=== PATIENT | female | born 1965 | race Caucasian/White ===

== ENCOUNTER 2017-01-25 12:28 | Emergency (ER) | payer MEDICAID ==
[2017-01-25 12:57] VITALS: BP 134/75
--- NOTE | 2017-01-25 14:18 | EDM.PDOC ---
ED HPI GENERAL MEDICAL PROBLEM - General Chief Complaint: ENT Problem Stated Complaint: EAR PAIN Time Seen by Provider: 01/25/17 14:08 Source of Information: Reports: Patient History Limitations: Reports: No Limitations - History of Present Illness INITIAL COMMENTS - FREE TEXT/NARRATIVE: 51 yo presents with left jaw and ear pain. starting last night. She states it started after she brushed her teeth and has worsened since. Unable to sleep last evening because of the pain. has established care at dentist. left sided headache. Denies fever, chills, sore throat, URI or general ill feeling. Left Ear Pain Score (Numeric/FACES): 10 - Related Data Allergies Allergy/AdvReac Type Severity Reaction Status Date / Time codeine Allergy Severe Rash Verified 01/25/17 13:58 Home Meds: Home Meds Cyclobenzaprine [Flexeril] 1 tab PO DAILY 03/02/16 [History] Ketoconazole [Ketoconazole] 1 applic TOP BID 03/02/16 [History] Terbinafine HCl [Terbinafine] 1 applic TOP BID 03/02/16 [History] traMADol [Ultram] 1 tab PO QID 03/02/16 [History] Hydrocort/Neomycin/Polymyxin B [Cortisporin Otic Susp] 03/16/16 [History] Doxepin HCl [Doxepin] 10 mg PO BEDTIME PRN 01/25/17 [History] Past Medical History - Past Health History Medical/Surgical History: Denies Medical/Surgical History Musculoskeletal History: Reports: Back Pain, Chronic, Other (See Below) Other Musculoskeletal History: chronic hip pain Social & Family History - Tobacco Use Smoking Status *Q: Current Every Day Smoker Years of Tobacco use: 32 Packs/Tins Daily: 0.5 Used Tobacco, but Quit: No Second Hand Smoke Exposure: No - Caffeine Use Caffeine Use: Reports: Coffee, Soda, Tea - Alcohol Use Days Per Week of Alcohol Use: 0 - Recreational Drug Use Recreational Drug Use: No ED ROS ENT - Review of Systems Review Of Systems: See Below Constitutional: Denies: Fever, Chills, Fatigue HEENT: Reports: Dental Pain, Ear Pain Respiratory: Denies: Shortness of Breath, Wheezing Cardiovascular: Denies: Chest Pain GI/Abdominal: Denies: Abdominal Pain ED EXAM, ENT - Physical Exam Exam: See Below Exam Limited By: No Limitations General Appearance: Alert, WD/WN, No Apparent Distress Ears: Normal External Exam, Normal Canal, Hearing Grossly Normal, Normal TMs Nose: Normal Inspection, Normal Mucousa Mouth/Throat: Dental Abcess (left lower back two teeth, moderate erythema, moderate edema, dental caries, tooth appears broken), Dental Pain, Dental Tenderness Head: Atraumatic, Normocephalic, Other (left mandible tenderness) Neck: Supple, Lymphadenopathy (L) Respiratory/Chest: No Respiratory Distress, Lungs Clear, Normal Breath Sounds. No: Crackles, Rhonchi, Wheezing Cardiovascular: Regular Rate, Rhythm GI/Abdominal: Soft, Non-Tender Neurological: Alert, Oriented Psychiatric: Normal Affect, Normal Mood Skin: Warm, Dry, Intact Course - Vital Signs Last Recorded V/S: Last Vital Signs Temp 36.6 C 01/25/17 13:57 Pulse 102 H 01/25/17 13:57 Resp 16 01/25/17 13:57 BP 134/75 01/25/17 13:57 Pulse Ox 96 01/25/17 13:57 Departure - Departure Time of Disposition: 14:17 Disposition: Home, Self-Care 01 Condition: good Clinical Impression: Dental abscess - Discharge Information Instructions: Dental Abscess Referrals: PCP,None [Primary Care Provider] - Forms: ED Department Discharge Additional Instructions: Augmentin twice daily for 10 days Ibuprofen 600 mg every 6 hours as needed for pain may also use acetaminophen 1000 mg every 6 hours for break through pain salt water rinse of mouth you need to see a dentist next week
== END 2017-01-25 14:45 | disposition home or self-care (01) ==
LOC: JP.ED 12:28
DX: K04.7 Periapical abscess without sinus (principal); F17.210 Nicotine dependence, cigarettes, uncomplicated; Z79.899 Other long term (current) drug therapy; Z88.5 Allergy status to narcotic agent
CPT/HCPCS: 99283

== ENCOUNTER 2017-02-08 13:38 | Emergency (ER) | payer MEDICAID ==
[2017-02-08 13:53] VITALS: BP 112/65
--- NOTE | 2017-02-08 14:14 | EDM.PDOC ---
ED HPI GENERAL MEDICAL PROBLEM - General Chief Complaint: Lower Extremity Injury/Pain Stated Complaint: LT ANKLE SWOLLEN Time Seen by Provider: 02/08/17 14:09 Source of Information: Reports: Patient History Limitations: Reports: No Limitations - History of Present Illness INITIAL COMMENTS - FREE TEXT/NARRATIVE: Pt noted left foot with swelling today. Denies fever or chills. No known injury or insect bite. Tender to touch. Onset: Today Onset Date: 02/08/17 Onset Time: 13:00 Location: Reports: Lower Extremity, Left Quality: Reports: Ache Severity: Mild Improves with: Reports: None Worsens with: Reports: None Associated Symptoms: Reports: No Other Symptoms - Related Data Allergies Allergy/AdvReac Type Severity Reaction Status Date / Time codeine Allergy Severe Rash Verified 01/25/17 13:58 Home Meds: Home Meds Cyclobenzaprine [Flexeril] 1 tab PO DAILY 03/02/16 [History] Ketoconazole [Ketoconazole] 1 applic TOP BID 03/02/16 [History] Terbinafine HCl [Terbinafine] 1 applic TOP BID 03/02/16 [History] traMADol [Ultram] 1 tab PO QID 03/02/16 [History] Hydrocort/Neomycin/Polymyxin B [Cortisporin Otic Susp] 03/16/16 [History] Doxepin HCl [Doxepin] 10 mg PO BEDTIME PRN 01/25/17 [History] Past Medical History - Past Health History Medical/Surgical History: Denies Medical/Surgical History Musculoskeletal History: Reports: Back Pain, Chronic, Other (See Below) Other Musculoskeletal History: chronic hip pain Social & Family History - Tobacco Use Smoking Status *Q: Current Every Day Smoker Years of Tobacco use: 34 Packs/Tins Daily: 0.5 Used Tobacco, but Quit: No Second Hand Smoke Exposure: No - Caffeine Use Caffeine Use: Reports: Coffee, Soda, Tea - Alcohol Use Days Per Week of Alcohol Use: 0 - Recreational Drug Use Recreational Drug Use: No Review of Systems - Review of Systems Review Of Systems: See Below Constitutional: Reports: No Symptoms Ears: Reports: No Symptoms Nose: Reports: No Symptoms Mouth/Throat: Reports: No Symptoms Respiratory: Reports: No Symptoms Cardiovascular: Reports: No Symptoms Musculoskeletal: Reports: Foot Pain (left), Joint Swelling Skin: Reports: No Symptoms ED EXAM, GENERAL - Physical Exam Exam: See Below Exam Limited By: No Limitations General Appearance: Alert, WD/WN, No Apparent Distress Respiratory/Chest: No Respiratory Distress, Lungs Clear, Normal Breath Sounds, No Accessory Muscle Use, Chest Non-Tender Cardiovascular: Normal Peripheral Pulses, Regular Rate, Rhythm, No Edema, No Gallop, No JVD, No Murmur, No Rub Extremities: Joint Swelling (left foot very mild), Leg Pain (left foot) Skin Exam: Warm, Dry, Intact, Normal Color, No Rash Course - Vital Signs Last Recorded V/S: Last Vital Signs Temp 97.7 F 02/08/17 14:03 Pulse 62 02/08/17 14:03 Resp 18 02/08/17 14:03 BP 112/65 02/08/17 14:03 Pulse Ox 95 02/08/17 14:03 - Orders/Labs/Meds Labs: Laboratory Tests 02/08/17 Range/Units 14:12 WBC 11.3 H (4.5-11.0) K/uL RBC 4.32 (3.30-5.50) M/uL Hgb 13.4 (12.0-15.0) g/dL Hct 40.9 (36.0-48.0) % MCV 95 (80-98) fL MCH 31 (27-31) pg MCHC 33 (32-36) % Plt Count 198 (150-400) K/uL Neut % (Auto) 65 (36-66) % Lymph % (Auto) 22 L (24-44) % [place] % (Auto) 9 H (2-6) % Eos % (Auto) 4 (2-4) % Baso % (Auto) 1 (0-1) % Departure - Departure Time of Disposition: 14:32 Disposition: Home, Self-Care 01 Condition: good Clinical Impression: Cellulitis and abscess of foot - Discharge Information Forms: ED Department Discharge Additional Instructions: CBC with mildly elevated WBC. Foot soaked in warm antibacterial cleanser today as pt is somewhat dirty today so difficult to exam her skin. Encouraged pt to soak foot daily in warm Epsom salt water. Rx for Cephalexin 500mg TID x 5 days. Followup if worsening. - Problem List & Annotations (1) Cellulitis and abscess of foot SNOMED Code(s): 404206055 Code(s): L03.119 - CELLULITIS OF UNSPECIFIED PART OF LIMB; L02.619 - CUTANEOUS ABSCESS OF UNSPECIFIED FOOT Status: Acute Priority: Low Current Visit: Yes
== END 2017-02-08 14:42 | disposition home or self-care (01) ==
LOC: JP.ED 13:38
DX: L03.116 Cellulitis of left lower limb (principal); L02.612 Cutaneous abscess of left foot; F17.210 Nicotine dependence, cigarettes, uncomplicated; Z88.5 Allergy status to narcotic agent; Z79.899 Other long term (current) drug therapy
CPT/HCPCS: 36415; 85025; 99284

== ENCOUNTER 2017-07-24 15:32 | Emergency (ER) | payer MEDICAID ==
[2017-07-24 15:50] VITALS: BP 128/83
--- NOTE | 2017-07-24 16:20 | EDM.PDOC ---
ED HPI GENERAL MEDICAL PROBLEM - General Chief Complaint: ENT Problem Stated Complaint: toothache Time Seen by Provider: 07/24/17 16:05 Source of Information: Reports: Patient History Limitations: Reports: No Limitations - History of Present Illness INITIAL COMMENTS - FREE TEXT/NARRATIVE: 51-year-old female with left mandibular dental pain for the past 2 days, and a small amount of swelling starting this morning. She has an appointment for extraction in 11 days. No fevers or chills. The tooth is sensitive to hot and cold. No recent trauma. Onset: Gradual (Over the past 2 days) Location: Reports: Other (Left mandible) Severity: Moderate Worsens with: Reports: Other (Hot or cold to the tooth or biting onto the tooth causes pain) Tooth/Teeth Pain Score (Numeric/FACES): 9 - Related Data Allergies Allergy/AdvReac Type Severity Reaction Status Date / Time codeine Allergy Severe Rash Verified 01/25/17 13:58 Home Meds: Home Meds Cyclobenzaprine [Flexeril] 1 tab PO DAILY 03/02/16 [History] Ketoconazole [Ketoconazole] 1 applic TOP BID 03/02/16 [History] Terbinafine HCl [Terbinafine] 1 applic TOP BID 03/02/16 [History] traMADol [Ultram] 1 tab PO QID 03/02/16 [History] Hydrocort/Neomycin/Polymyxin B [Cortisporin Otic Susp] 03/16/16 [History] Doxepin HCl [Doxepin] 10 mg PO BEDTIME PRN 01/25/17 [History] Past Medical History - Past Health History Medical/Surgical History: Denies Medical/Surgical History HEENT History: Reports: Otitis Media Musculoskeletal History: Reports: Back Pain, Chronic, Other (See Below) Other Musculoskeletal History: chronic hip pain Neurological History: Reports: Migraines Dermatologic History: Reports: Cellulitis Social & Family History - Tobacco Use Smoking Status *Q: Current Every Day Smoker Years of Tobacco use: 34 Packs/Tins Daily: 0.5 Used Tobacco, but Quit: No Second Hand Smoke Exposure: No - Caffeine Use Caffeine Use: Reports: Coffee, Soda, Tea - Alcohol Use Days Per Week of Alcohol Use: 0 - Recreational Drug Use Recreational Drug Use: No ED ROS ENT - Review of Systems Review Of Systems: See Below Constitutional: Denies: Fever, Chills HEENT: Denies: Ear Pain Respiratory: Denies: Shortness of Breath Cardiovascular: Denies: Chest Pain GI/Abdominal: Denies: Abdominal Pain, Nausea, Vomiting Skin: Reports: No Symptoms ED EXAM, ENT - Physical Exam Exam: See Below Exam Limited By: No Limitations General Appearance: Alert, No Apparent Distress (Looks uncomfortable but not distressed) Ears: Normal External Exam, Normal TMs Mouth/Throat: Other (She has percussion tenderness to the second and third molar on the left mandible. There is slight erythema to the gum but no significant swelling.) Course - Vital Signs Last Recorded V/S: Last Vital Signs Temp 96.8 F 07/24/17 15:58 Pulse 96 07/24/17 15:58 Resp 16 07/24/17 15:58 BP 128/83 07/24/17 15:58 Pulse Ox 96 07/24/17 15:58 - Re-Assessments/Exams Free Text/Narrative Re-Assessment/Exam: 07/24/17 16:19 Patient was placed on penicillin 500 mg 4 times a day for the next 10 days. Encouraged to continue with ibuprofen and given 10 Vicodin for extra pain control. She should return if worsening such as increased swelling or fever despite the antibiotic. Otherwise complete her appointment on 04 August as scheduled with the dentist. Departure - Departure Time of Disposition: 16:25 Disposition: Home, Self-Care 01 Condition: Good Clinical Impression: Dental abscess - Discharge Information Instructions: Dental Abscess, [id number] Referrals: Pradip Ortega MD [Primary Care Provider] - Forms: ED Department Discharge Care Plan Goals: Take antibiotic 4 times a day until gone. Continue with ibuprofen on a regular basis and add stronger pain medication if needed. Return if worsening despite antibiotics such as facial swelling or redness, fever, or unable to take the medicine due to vomiting.
== END 2017-07-24 16:25 | disposition home or self-care (01) ==
LOC: JP.ED 15:32
DX: K04.7 Periapical abscess without sinus (principal); F17.210 Nicotine dependence, cigarettes, uncomplicated; Z88.5 Allergy status to narcotic agent; Z79.899 Other long term (current) drug therapy
CPT/HCPCS: 99283

== ENCOUNTER 2017-10-18 17:56 | Emergency (ER) | payer MEDICAID | END 2017-10-18 20:27 | disposition left against medical advice (07) | LOC: JP.ED 17:56 | DX: Z53.21 Procedure and treatment not carried out due to patient leaving prior to being seen by health care provider (principal) | CPT/HCPCS: 99283 ==

== ENCOUNTER 2018-02-17 15:05 | Emergency (ER) | payer MEDICAID ==
[2018-02-17 15:26] VITALS: BP 142/93
--- NOTE | 2018-02-17 16:32 | EDM.PDOC ---
ED HPI GENERAL MEDICAL PROBLEM - General Chief Complaint: Gastrointestinal Problem Stated Complaint: DIZZY Time Seen by Provider: 02/17/18 15:30 Source of Information: Reports: Patient History Limitations: Reports: No Limitations - History of Present Illness INITIAL COMMENTS - FREE TEXT/NARRATIVE: 52-year-old female feels dizzy whenever she tries to do something today. She feels lightheaded and woozy when she stands. No fevers or chills, no headache, no shortness of breath, no palpitations or chest pain, no diarrhea, nausea or vomiting. She's had no rash. It sounds more lightheaded than vertigo. When it was persistent for most of the day she decided to go into the clinic to have it checked out, they told her it would be an hour and a half weight so she came to the emergency room. Onset: Sudden Severity: Moderate Associated Symptoms: Reports: Malaise, Weakness. Denies: Confusion, Chest Pain , Cough, Diaphoresis, Fever/Chills, Headaches, Loss of Appetite, Nausea/Vomiting , Shortness of Breath - Related Data Allergies Allergy/AdvReac Type Severity Reaction Status Date / Time codeine Allergy Severe Rash Verified 02/17/18 15:31 Home Meds: Home Meds Cyclobenzaprine [Flexeril] 1 tab PO DAILY 03/02/16 [History] Ketoconazole 1 applic TOP BID 03/02/16 [History] Terbinafine HCl [Terbinafine] 1 applic TOP BID 03/02/16 [History] Hydrocort/Neomycin/Polymyxin B [Cortisporin Otic Susp] 1 drop EARBOTH BID PRN [History] Doxepin HCl [Doxepin] 10 mg PO BEDTIME PRN 01/25/17 [History] Albuterol [Ventolin HFA] 1 puff INH Q4H PRN 02/17/18 [History] Past Medical History - Past Health History Medical/Surgical History: Denies Medical/Surgical History HEENT History: Reports: Otitis Media Respiratory History: Reports: Asthma Musculoskeletal History: Reports: Back Pain, Chronic, Other (See Below) Other Musculoskeletal History: chronic hip pain Neurological History: Reports: Migraines Dermatologic History: Reports: Cellulitis Social & Family History - Tobacco Use Smoking Status *Q: Current Every Day Smoker Years of Tobacco use: 30 Packs/Tins Daily: 0.5 - Caffeine Use Caffeine Use: Reports: Coffee - Recreational Drug Use Recreational Drug Use: No ED ROS GENERAL - Review of Systems Review Of Systems: See Below Constitutional: Reports: Malaise, Weakness. Denies: Fever, Chills HEENT: Reports: No Symptoms. Denies: Vision Change Respiratory: Denies: Shortness of Breath, Cough Cardiovascular: Denies: Chest Pain GI/Abdominal: Denies: Abdominal Pain : Reports: No Symptoms Skin: Reports: No Symptoms Neurological: Reports: Dizziness. Denies: Headache Psychiatric: Reports: No Symptoms ED EXAM, GENERAL - Physical Exam Exam: See Below Exam Limited By: No Limitations General Appearance: Alert, No Apparent Distress Eye Exam: Bilateral Eye: Other (EOMs are normal, no nystagmus) Ears: Normal TMs Head: Atraumatic Respiratory/Chest: No Respiratory Distress, Lungs Clear Cardiovascular: Regular Rate, Rhythm. No: Extra Beats GI/Abdominal: Soft, Non-Tender Extremities: Normal Inspection. No: Pedal Edema Neurological: Alert, Oriented Psychiatric: Normal Affect, Normal Mood Skin Exam: Warm, Dry Course - Vital Signs Last Recorded V/S: Last Vital Signs Temp 96.3 F 02/17/18 15:37 Pulse 90 02/17/18 15:37 Resp 18 02/17/18 15:37 BP 142/93 H 02/17/18 15:37 Pulse Ox 96 02/17/18 15:37 Orthostatic Blood Pressure [ 141/81 Standing] Orthostatic Blood Pressure [ 138/82 Sitting] Orthostatic Blood Pressure [ 111/72 Supine] - Orders/Labs/Meds Labs: Laboratory Tests 02/17/18 02/17/18 Range/Units 16:32 16:32 WBC 13.1 H (4.5-11.0) K/uL RBC 5.09 (3.30-5.50) M/uL Hgb 16.1 H D (12.0-15.0) g/dL Hct 47.0 (36.0-48.0) % MCV 92 (80-98) fL MCH 32 H (27-31) pg MCHC 34 (32-36) % Plt Count 151 (150-400) K/uL Neut % (Auto) 69 H (36-66) % Lymph % (Auto) 18 L (24-44) % [place] % (Auto) 10 H (2-6) % Eos % (Auto) 2 (2-4) % Baso % (Auto) 0 (0-1) % Sodium 139 L (140-148) mmol/L Potassium 4.0 (3.6-5.2) mmol/L Chloride 103 (100-108) mmol/L Carbon Dioxide 26 (21-32) mmol/L Anion Gap 14.0 (5.0-14.0) mmol/L BUN 13 (7-18) mg/dL Creatinine 0.8 (0.6-1.0) mg/dL Est Cr Clr Drug Dosing 76.13 mL/min Estimated GFR (MDRD) > 60 (>60) Glucose 105 (74-106) mg/dL Calcium 9.0 (8.5-10.1) mg/dL Total Bilirubin 0.3 (0.2-1.0) mg/dL AST 17 (15-37) U/L ALT 22 (12-78) U/L Alkaline Phosphatase 78 (46-116) U/L Total Protein 7.4 (6.4-8.2) g/dL Albumin 3.7 (3.4-5.0) g/dL Globulin 3.7 H (2.3-3.5) g/dL Albumin/Globulin Ratio 1.0 L (1.2-2.2) - Re-Assessments/Exams Free Text/Narrative Re-Assessment/Exam: 02/17/18 16:31 Orthostatics were checked. They were stable. CBC and CMP was then obtained. 02/17/18 17:32 Labs were all normal. Patient continued to have some mild symptoms but no further evaluation is necessary at this time. She'll recheck in 2-3 days if not improving satisfactorily. We discussed a head CT but she declined at this time. Departure - Departure Time of Disposition: 17:41 Disposition: Home, Self-Care 01 Condition: Good Clinical Impression: Dizziness - Discharge Information Instructions: Dizziness, [id number] Referrals: Pradip Ortega MD [Primary Care Provider] - Forms: ED Department Discharge Care Plan Goals: Continue your current medications, increase activity as tolerated and recheck in 2-3 days if not improving satisfactorily. Stay hydrated. Return sooner if worsening or concerns.
== END 2018-02-17 17:41 | disposition home or self-care (01) ==
LOC: JP.ED 15:05
DX: R42 Dizziness and giddiness (principal); J45.909 Unspecified asthma, uncomplicated; F17.210 Nicotine dependence, cigarettes, uncomplicated; Z79.899 Other long term (current) drug therapy; Z88.5 Allergy status to narcotic agent
CPT/HCPCS: 36415; 80053; 85025; 99284

== ENCOUNTER 2020-09-20 15:37 | Emergency (ER) | payer MEDICAID ==
[2020-09-20 16:45] VITALS: BP 138/72; PULSE 86
[2020-09-20] MEDS ORDERED: Ketorolac 30 MG/ML SDV IM ONE (17:35)
--- NOTE | 2020-09-20 17:42 | EDM.PDOC ---
ED HPI GENERAL MEDICAL PROBLEM - General Chief Complaint: Back Pain or Injury Stated Complaint: BACK PAIN Time Seen by Provider: 09/20/20 17:10 Source of Information: Reports: Patient, Old Records, RN - History of Present Illness INITIAL COMMENTS - FREE TEXT/NARRATIVE: 54-year-old female comes in complaining of back pain which kind of started today but she has had intermittently in the past. Does not radiate anywhere. She is notably overweight that might be the reason. She also may have some degenerative changes. Nothing goes down her legs. There is no associated fever chills urinary symptoms or bladder or bowel function issues. She also complains chest pain in both ears and on exam she does have evidence of otitis externa and possible Kyler media bilaterally Lower Back Pain Score (Numeric/FACES): 9 - Related Data Allergies Allergy/AdvReac Type Severity Reaction Status Date / Time codeine Allergy Severe Rash Verified 02/17/18 15:31 Home Meds: Home Meds Cyclobenzaprine [Flexeril] 1 tab PO DAILY 03/02/16 [History] Ketoconazole 1 applic TOP BID 03/02/16 [History] Terbinafine HCl [Terbinafine] 1 applic TOP BID 03/02/16 [History] Doxepin HCl [Doxepin] 10 mg PO BEDTIME PRN 01/25/17 [History] Albuterol [Ventolin HFA] 1 puff INH Q4H PRN 02/17/18 [History] Past Medical History - Past Health History Medical/Surgical History: Denies Medical/Surgical History HEENT History: Reports: Otitis Media Respiratory History: Reports: Asthma Musculoskeletal History: Reports: Back Pain, Chronic, Other (See Below) Other Musculoskeletal History: chronic hip pain Neurological History: Reports: Migraines Dermatologic History: Reports: Cellulitis - Infectious Disease History Infectious Disease History: Reports: Chicken Pox Social & Family History - Tobacco Use Tobacco Use Status *Q: Current Every Day Tobacco User Years of Tobacco use: 38 Packs/Tins Daily: 0.5 - Caffeine Use Caffeine Use: Reports: Coffee - Recreational Drug Use Recreational Drug Use: No ED ROS GENERAL - Review of Systems Review Of Systems: See Below Reason Not Obtained: 10 systems reviewed and problem today is overweight, back pain an Constitutional: Reports: No Symptoms HEENT: Reports: Ear Pain ED EXAM,LOWER BACK PAIN/INJURY - Physical Exam Exam: See Below Text/Narrative:: 54-year-old female notably overweight sitting on the chair complained of pain in her back and bilateral ear pain. HEENT does show that she has reddened and swollen ear canals bilaterally and TMs are slightly reddened as well. She also has tenderness when I feel of the ear and pressure around it. Also has tenderness in the intracervical nodes bilaterally. Mouth and throat are otherwise okay. Neck is supple normal range of motion Chest is okay Back exam does show some tenderness bilaterally over the breath of the lumbar area. No tenderness on percussion of the spine. Skin extremities show a large legs but good gait and able to stand and move about without neurologic deficits Exam Limited By: No Limitations Course - Vital Signs Text/Narrative:: Patient given Toradol 50 mg IM she said that gives her relief of her back pain. She is given a prescription for Augmentin and ofloxacin eardrops and to follow- up with her doctor next week Last Recorded V/S: Last Vital Signs Temp 36.3 C 09/20/20 16:49 Pulse 86 09/20/20 16:49 Resp 16 09/20/20 16:49 BP 138/72 09/20/20 16:49 Pulse Ox 96 09/20/20 16:49 - Orders/Labs/Meds Meds: Medications Discontinued Medications Generic Name Dose Route Start Last Admin Trade Name Jaelyn PRN Reason Stop Dose Admin Ketorolac Tromethamine 15 mg 09/20/20 17:35 Toradol IM 09/20/20 17:36 ONETIME ONE Departure - Departure Time of Disposition: 17:55 Disposition: Home, Self-Care 01 Condition: Good Clinical Impression: Otitis externa, Back pain - Discharge Information Instructions: Otitis Externa Referrals: Pradip Ortega MD [Primary Care Provider] - Forms: ED Department Discharge Sepsis Event Note (ED) - Evaluation Sepsis Screening Result: No Definite Risk - Focused Exam Vital Signs: Vital Signs Temp Pulse Resp BP Pulse Ox 09/20/20 16:49 36.3 C 86 16 138/72 96 09/20/20 16:43 36.3 C 86 16 138/72 96
== END 2020-09-20 17:59 | disposition home or self-care (01) ==
LOC: JP.ED 15:37
DX: M54.5 Low back pain (principal); H60.93 Unspecified otitis externa, bilateral; J45.909 Unspecified asthma, uncomplicated; Z72.0 Tobacco use; Z88.5 Allergy status to narcotic agent; Z79.899 Other long term (current) drug therapy
CPT/HCPCS: 96372; 99283; J1885

== ENCOUNTER 2020-12-30 16:05 | Emergency (ER) | payer MEDICAID ==
[2020-12-30 16:22] VITALS: BP 153/81; PULSE 103
--- NOTE | 2020-12-30 17:53 | EDM.PDOC ---
ED HPI GENERAL MEDICAL PROBLEM - General Chief Complaint: Lower Extremity Injury/Pain Stated Complaint: LEFT THIGH SWELLING\\PAIN Time Seen by Provider: 12/30/20 16:35 Source of Information: Reports: Patient History Limitations: Reports: No Limitations - History of Present Illness INITIAL COMMENTS - FREE TEXT/NARRATIVE: 55-year-old female arrives to the emergency room with complaints of increasing leg swelling and pain, especially the left leg. She is also having difficulty breathing with activity. She is a heavy smoker, and continues to smoke as well as not treating her asthma consistently. She has an appointment with her primary doctor in 4 days to discuss chronic "fluid around her heart". She takes 20 mg of Lasix daily, is very sedentary. She says she tries to take walks with her grandkids and cannot go very far, she is also having difficulty sleeping at night because of the leg pain. She does not have nocturnal dyspnea or orthopnea. The left leg is more swollen than the right. Onset: Gradual Duration: Day(s): (Chronic issues seem to be worsening over the past 3 days) Location: Reports: Lower Extremity, Left, Lower Extremity, Right Associated Symptoms: Reports: Cough, Malaise, Shortness of Breath (Especially with activity). Denies: Chest Pain, Fever/Chills, Headaches, Nausea/Vomiting - Related Data Allergies Allergy/AdvReac Type Severity Reaction Status Date / Time codeine Allergy Severe Rash Verified 12/30/20 16:16 Home Meds: Home Meds Ketoconazole 1 applic TOP BID 03/02/16 [History] Terbinafine HCl [Terbinafine] 1 applic TOP BID 03/02/16 [History] Doxepin HCl [Doxepin] 10 mg PO BEDTIME PRN 01/25/17 [History] Albuterol [Ventolin HFA] 1 puff INH Q4H PRN 02/17/18 [History] Furosemide [Lasix] 20 mg PO DAILY 12/30/20 [History] atorvaSTATin [Lipitor] 20 mg PO BEDTIME 12/30/20 [History] Past Medical History - Past Health History Medical/Surgical History: Denies Medical/Surgical History HEENT History: Reports: Otitis Media Cardiovascular History: Reports: High Cholesterol Respiratory History: Reports: Asthma Musculoskeletal History: Reports: Back Pain, Chronic, Other (See Below) Other Musculoskeletal History: chronic hip pain Neurological History: Reports: Migraines Dermatologic History: Reports: Cellulitis - Infectious Disease History Infectious Disease History: Reports: Chicken Pox Social & Family History - Tobacco Use Tobacco Use Status *Q: Current Every Day Tobacco User Years of Tobacco use: 38 Packs/Tins Daily: 1 - Caffeine Use Caffeine Use: Reports: Coffee, Soda - Recreational Drug Use Recreational Drug Use: No Review of Systems - Review of Systems Review Of Systems: See Below Constitutional: Denies: Fever Mouth/Throat: Reports: No Symptoms Respiratory: Reports: Shortness of Breath, Wheezing, Cough Cardiovascular: Denies: Chest Pain, Irregular Heart Rate, Lightheadedness GI/Abdominal: Reports: No Symptoms Musculoskeletal: Reports: Back Pain, Leg Pain (Bilateral, left worse than right), Other (Complains of leg cramps at night) Skin: Reports: No Symptoms Neurological: Reports: Weakness. Denies: Paresthesia ED EXAM, GENERAL - Physical Exam Exam: See Below Free Text/Narrative:: Patient generally appears very unhealthy, overweight with significant lower extremity edema. Exam Limited By: No Limitations General Appearance: Alert, No Apparent Distress Respiratory/Chest: No Respiratory Distress, Wheezing (Few scattered expiratory wheezes are heard but she has good air movement to the bases) Cardiovascular: Regular Rate, Rhythm. No: Extra Beats Extremities: Other (Patient has a trace of lower extremity edema on the right leg, 1+ pitting on the left leg. She does have diffuse palpation tenderness in the calf and around the knees bilaterally, worse on the left) Neurological: Alert, Oriented Psychiatric: Flat Affect Skin Exam: Warm, Dry Course - Vital Signs Last Recorded V/S: Last Vital Signs Temp 98.4 F 12/30/20 16:18 Pulse 103 H 12/30/20 16:18 Resp 16 12/30/20 16:18 BP 153/81 H 12/30/20 16:18 Pulse Ox 94 L 12/30/20 16:18 - Orders/Labs/Meds Orders: Active Orders 24 hr Category Date Time Status Chest 2V [CR] Routine Exams 12/30/20 17:27 Taken VL Duplex Lwr Ext Veins Ltd Lt [US] Stat Exams 12/30/20 17:00 Taken - Re-Assessments/Exams Free Text/Narrative Re-Assessment/Exam: 12/30/20 17:52 Initially was very concerning that she may be developing DVTs in the lower extremities, particularly the left side. However an ultrasound of the leg was negative. A 2 view chest x-ray was also very reassuring, cardiac size was normal and there was no evidence of congestive failure or effusion. Her symptoms may be just chronic deconditioning and uncontrolled reactive airways along with heavy smoking. I gave her 6 inch James wraps to apply around her legs for support, encouraged her to increase her Lasix to 20 mg twice daily instead of once a day, and gave her 15 tramadol to use at bedtime along with naproxen or Aleve until she sees Dr. Ortega in 4 days. Departure - Departure Time of Disposition: 18:07 Disposition: Home, Self-Care Clinical Impression: Bilateral leg edema, Leg pain, bilateral Dyspnea Qualifiers: Dyspnea type: unspecified Qualified Code(s): R06.00 - Dyspnea, unspecified - Discharge Information Instructions: Edema, [id number] Referrals: Pradip Ortega MD [Primary Care Provider] - Forms: ED Department Discharge Care Plan Goals: Use James wraps to your lower extremities for support and to decrease swelling. Stay active if possible, avoid any extra salt intake. Consider an extra Lasix in the early afternoon until you see Dr. Ortega on . An anti- inflammatory such as Aleve or ibuprofen at bedtime along with tramadol may help with your sleeping, also decreasing smoking would help. Sepsis Event Note (ED) - Evaluation Sepsis Screening Result: No Definite Risk - My Orders Last 24 Hours: My Active Orders 12/30/20 17:00 VL Duplex Lwr Ext Veins Ltd Lt [US] Stat 12/30/20 17:27 Chest 2V [CR] Routine - Assessment/Plan Last 24 Hours: My Active Orders 12/30/20 17:00 VL Duplex Lwr Ext Veins Ltd Lt [US] Stat 12/30/20 17:27 Chest 2V [CR] Routine
--- NOTE | 2021-01-01 09:31 | US ---
VL Duplex Lwr Ext Veins Ltd Lt INDICATION: swelling, pain, concern for dvt FINDINGS: Ultrasound examination of the lower extremity using Doppler and compressive technique demonstrates that the common femoral, femoral, and popliteal veins are patent, and negative for thrombus. The calf veins were segmentally visualized and are negative where seen. IMPRESSION: Negative for deep venous thrombosis.
--- NOTE | 2021-01-01 09:32 | CR ---
CHEST: 2 view CLINICAL HISTORY:Dyspnea COMPARISON:None FINDINGS: The heart size, pulmonary vascularity and hilar structures are normal. No infiltrate effusion or pneumothorax is seen. IMPRESSION: No acute cardiopulmonary process.
== END 2020-12-30 18:07 | disposition home or self-care (01) ==
LOC: JP.ED 16:05
DX: R60.0 Localized edema (principal); R06.00 Dyspnea, unspecified; J45.909 Unspecified asthma, uncomplicated; E78.00 Pure hypercholesterolemia, unspecified; Z72.0 Tobacco use; Z79.899 Other long term (current) drug therapy; Z88.5 Allergy status to narcotic agent
CPT/HCPCS: 71046; 71046-26; 93971-26-LT; 93971-LT; 99283; 99285-25

== ENCOUNTER 2022-03-16 17:21 | Emergency (ER) | payer MEDICAID ==
[2022-03-16 17:57] VITALS: BP 145/76; PULSE 106
[2022-03-16] MEDS: Acetaminophen/HYDROcodone 325-5 MG Tab PO ONE (18:18)
[2022-03-16] MEDS: diphenhydrAMINE 25 MG Cap PO ONE (18:18)
[2022-03-16] MEDS: methylPREDNISolone Sodium Succinate 125 MG/2 ML SDV IM ONE (18:19)
== END 2022-03-16 18:52 | disposition home or self-care (01) ==
LOC: JP.ED 17:21
DX: M54.50 Low back pain, unspecified (principal); M54.6 Pain in thoracic spine; E78.00 Pure hypercholesterolemia, unspecified; Z88.5 Allergy status to narcotic agent; Z79.899 Other long term (current) drug therapy
CPT/HCPCS: 96372; 99283; A9270; J2930

== ENCOUNTER 2025-01-25 11:38 | Emergency (ER) | payer MEDICAID ==
[2025-01-25 12:38] VITALS: BP 141/66; PULSE 83
== END 2025-01-25 14:00 | disposition home or self-care (01) ==
LOC: JP.ED 11:38
DX: K02.9 Dental caries, unspecified (principal); E78.00 Pure hypercholesterolemia, unspecified; I10 Essential (primary) hypertension; J45.909 Unspecified asthma, uncomplicated; F17.200 Nicotine dependence, unspecified, uncomplicated; Z88.5 Allergy status to narcotic agent; Z79.51 Long term (current) use of inhaled steroids; Z79.82 Long term (current) use of aspirin; Z79.899 Other long term (current) drug therapy
CPT/HCPCS: 99282